=== PATIENT | male | born 1955 ===

== ENCOUNTER 2021-03-01 05:33 | Day surgery (SDC) | payer BC ==
[~2021-03-01] VITALS: Ht 170.2 cm; Wt 79.8 kg
[~2021-03-01 05:33] MED LIST: BEMP1TAB PO; CETI10CA PO; CHOL10003 PO; FAMO-79 PO; MULT-449 PO; TRIA1CAP3 PO
[2021-03-01 05:51] VITALS: BP 143/86
[2021-03-01] MEDS ORDERED: CHLORHEXIDINE 15 ML UDC ONE (06:00)
[2021-03-01] MEDS ORDERED: CHLORHEXIDINE 15 ML UDC PO ONE (06:00)
[2021-03-01] MEDS ORDERED: LACTATED RINGERS 1,000 ML IV SCH (06:00)
[2021-03-01] MEDS ORDERED: EPINEPHRINE 1 MG/ML, 1ML ONE (06:49)
[2021-03-01] MEDS ORDERED: BUPIVACAINE/PF 0.5% ONE (06:49)
[2021-03-01] MEDS ORDERED: FENTANYL PF 250 MCG/5ML ONE (06:56)
[2021-03-01] MEDS ORDERED: MIDAZOLAM 1 MG/ML, 2ML ONE (06:56)
[2021-03-01] MEDS ORDERED: LABETALOL 5MG/ML, 20ML IV PRN (07:30)
[2021-03-01] MEDS ORDERED: hydrALAzine 20 MG/ML, 1ML IV PRN (07:30)
[2021-03-01] MEDS ORDERED: DEXAMETHASONE 4 MG/ML, 1ML ONE (07:30)
[2021-03-01] MEDS ORDERED: METHOCARBAMOL 1,000 MG in DEXTROSE 5% 100 ML IV PRN (07:30)
[2021-03-01] MEDS ORDERED: PROMETHAZINE 25 MG/ML, 1ML IVPush PRN (07:30)
[2021-03-01] MEDS ORDERED: HALOPERIDOL 5 MG/ML IV PRN (07:30)
[2021-03-01] MEDS ORDERED: FENTANYL PF 100 MCG/2ML IV PRN (07:30)
[2021-03-01] MEDS ORDERED: KETOROLAC 30 MG/1 ML ONE (07:30)
[2021-03-01] MEDS ORDERED: LORazepam 2 MG/ML, 1ML IVPush PRN (07:30)
[2021-03-01] MEDS ORDERED: ACETAMINOPHEN 325 MG TABLET PO PRN (07:30)
[2021-03-01] MEDS ORDERED: EPHEDRINE 50 MG/ML, 1ML IVPush PRN (07:30)
[2021-03-01] MEDS ORDERED: HYDROmorphone 1 MG/ML, 1ML INJ IVPush PRN (07:30)
[2021-03-01] MEDS ORDERED: ONDANSETRON 2MG/ML, 2ML IVPush PRN (07:30)
[2021-03-01] MEDS ORDERED: OXYcodone 5 MG/5 ML ORAL.SOL UDC PO PRN (07:30)
[2021-03-01] MEDS ORDERED: MEPERIDINE/PF 25MG/0.5ML IVPush PRN (07:30)
[2021-03-01] MEDS ORDERED: PROPOFOL 10 MG/ML, 20ML ONE (08:16)
[2021-03-01] MEDS ORDERED: ROCURONIUM 10MG/ML,5ML ONE (08:16)
[2021-03-01] MEDS ORDERED: SUCCINYLCHOLINE 20 MG/ML, 10ML ONE (08:16)
[2021-03-01] MEDS ORDERED: NEOSTIGMINE 1 MG/ML, 10ML ONE (08:16)
[2021-03-01] MEDS ORDERED: GLYCOPYRROLATE 0.2MG/1ML, 5ML ONE (08:16)
[2021-03-01] MEDS ORDERED: CEFAZOLIN 1,000 MG ONE (08:16)
[2021-03-01] MEDS ORDERED: ONDANSETRON 2MG/ML, 2ML ONE (08:16)
[2021-03-01] MEDS ORDERED: ONDA4TAB7 PO (09:49)
[2021-03-01] MEDS ORDERED: HYDR-1067 PO (09:49)
== END 2021-03-01 12:25 | disposition home or self-care (01) ==
LOC: OUT 05:33
PROVIDERS: ATTEND Surgery
DX: K40.91 Unilateral inguinal hernia, without obstruction or gangrene, recurrent (principal); K40.90 Unilateral inguinal hernia, without obstruction or gangrene, not specified as recurrent; I10 Essential (primary) hypertension; Z20.822 Contact with and (suspected) exposure to COVID-19; Z79.82 Long term (current) use of aspirin; Z79.899 Other long term (current) drug therapy
CPT/HCPCS: 49520; 93005; C1781; J0171; J0330; J0690; J1100; J1885; J2250; J2405; J2704; J2710; J3010; J7120; U0003